=== PATIENT | male | born 1945 | race African-American/Black ===

== ENCOUNTER 2022-09-06 07:27 | Day surgery (SDC) | payer OTHER ==
[~2022-09-06] VITALS: Ht 182.9 cm; Wt 69.4 kg
[~2022-09-06 07:27] MED LIST: CEFAZOLIN SOD 2 GM in D5W 50 ML IV ONE
[2022-09-06] MEDS ORDERED: MORPHINE SULFATE 10MG/10ML PF AMP ONE (09:48)
[2022-09-06] MEDS ORDERED: DESFLURANE 15 MIN GAS INH ONE (09:48)
[2022-09-06] MEDS ORDERED: MORPHINE SULFATE 10 MG/ML VIAL ONE (09:48)
[2022-09-06] MEDS ORDERED: LABETALOL 200 MG/ 40ML VIAL ONE (09:48)
[2022-09-06] MEDS ORDERED: NS 1000 ML IV.SOLN IV ONE (09:48)
[2022-09-06] MEDS ORDERED: SUCCINYLCHOLINE CHLORIDE 20 MG/ML(QUELICIN) ONE (09:48)
[2022-09-06] MEDS ORDERED: BUPIVACAINE /PF 0.25% 30 ML VIAL INJ ONE (09:48)
[2022-09-06] MEDS ORDERED: ROCURONIUM BROMIDE 10 MG/ML (ZEMURON) ONE (09:48)
[2022-09-06] MEDS ORDERED: PROPOFOL 200MG/ 20ML VIAL (DIPRIVAN) IV ONE (09:48)
[2022-09-06] MEDS ORDERED: DEXAMETHASONE SOD PHOSPHATE 4 MG/ML VIAL ONE (09:48)
[2022-09-06] MEDS ORDERED: SUGAMMADEX SODIUM 200 MG/2 ML VIAL IV ONE (09:48)
[2022-09-06] MEDS ORDERED: fentaNYL CITRATE/PF 100 MCG/2 ML AMP ONE (09:48)
[2022-09-06] MEDS ORDERED: LR 1,000 ML IV.SOLN IV ONE (09:48)
[2022-09-06] MEDS ORDERED: ONDANSETRON HCL 4 MG/2 ML VIAL ONE (09:48)
[2022-09-06] MEDS ORDERED: ACETAMINOPHEN I.V. 1000 MG 100 ML IV ONE (10:03)
[2022-09-06] MEDS ORDERED: MORPHINE 4 MG INJ. 4 MG/ML VIAL IVP PRN ×3 (10:15)
[2022-09-06] MEDS ORDERED: ONDANSETRON HCL 4 MG/2 ML VIAL IVP PRN (10:15)
[2022-09-06] MEDS ORDERED: D5/0.45 NS 1,000 ML IV SCH (11:00)
[2022-09-06] MEDS ORDERED: HYDROcodone/ACETAMIN 5-325 MG TAB (NORCO/ VICODIN) PO PRN ×2 (11:00)
[2022-09-06] MEDS: MORPHINE 2 MG/ML INJ. SYRINGE ONE ×2 (11:40→11:55)
[2022-09-06] MEDS ORDERED: hydrALAZINE HCL 20 MG/ML VIAL ONE (13:09)
[2022-09-06] MEDS ORDERED: hydrALAZINE HCL 20 MG/ML VIAL IVP ONE ×2 (13:15)
[2022-09-06 15:18] VITALS: BP_SYST 161
== END 2022-09-06 14:23 | disposition home or self-care (01) ==
LOC: SDS 07:27 → SMU 07:27 → SDS 14:23
PROVIDERS: ATTEND Colon & Rectal Surgery
DX: K80.10 Calculus of gallbladder with chronic cholecystitis without obstruction (principal); I12.9 Hypertensive chronic kidney disease with stage 1 through stage 4 chronic kidney disease, or unspecified chronic kidney disease; N18.9 Chronic kidney disease, unspecified; F03.90 Unspecified dementia, unspecified severity, without behavioral disturbance, psychotic disturbance, mood disturbance, and anxiety; Z85.46 Personal history of malignant neoplasm of prostate; Z96.641 Presence of right artificial hip joint; Z79.899 Other long term (current) drug therapy
CPT/HCPCS: 87081; 47563; 74300; 88304; J3490 ×3; J0690; J1100; J0360; J2405; J2704; J0330; J3010; J2274; J2270 ×2; Q9967; J7060; J7120; J7030; C1758; C1727; J0131; 76000

== ENCOUNTER 2022-10-01 16:04 | Emergency (ER) | payer OTHER ==
[~2022-10-01] VITALS: Ht 182.9 cm; Wt 64.4 kg
[2022-10-01 16:24] VITALS: BP_SYST 126; PULSE 87; RESP 18; TEMP 98.3; O2SAT 100
[2022-10-01] MEDS ORDERED: KETOROLAC TROMETHAMINE 30 MG VIAL IM ONE (17:00)
[2022-10-01] MEDS ORDERED: traMADol HCL HCL 50 MG TABLET (ULTRAM) PO ONE (17:00)
[2022-10-01 17:06] LABS: BILIRUBIN,URINE NEGATIVE (NEGATIVE); BLOOD, URINE NEGATIVE (NEGATIVE); CLARITY/URINE CLEAR (CLEAR); COLOR,URINE YELLOW (YELLOW); GLUCOSE,URINE NEGATIVE (NEGATIVE); KETONES,URINE TRACE (NEGATIVE); LEUKOCYTE ESTERASE ,URINE NEGATIVE (NEGATIVE); NITRITE, URINE NEGATIVE (NEGATIVE); PROTEIN URINE 1+ (NEGATIVE); UROBILINOGEN,URINE 0.2 (0.2-1.0)
[2022-10-01 17:11] LABS: BACTERIA,URINE None Seen /HPF (None Seen); MUCUS,URINE None Seen /LPF (None Seen); RBC,URINE NONE SEEN /HPF (0-3); WBC,URINE 0-3 /HPF (0-3)
[2022-10-01 17:59] LABS: BASOPHILS % (AUTO) 0.5 % (0.0-2.0); EOSINOPHILS % (AUTO) 0.4 % (0.0-4.0); HEMATOCRIT 26.6 % (36-54); LYMPHOCYTES % (AUTO) 11.6 % (20.5-51.5); MEAN CORPUSCULAR HEMOGLOBIN 28 pg (27-31); MEAN CORPUSCULAR HGB CONC 34 % (32-36); MEAN CORPUSCULAR VOLUME 83 fL (79.0-98.0); MONOCYTES # (AUTO) 0.7 K/uL (0.0-1.0); MONOCYTES % (AUTO) 8.7 % (1.7-9.3); NEUTROPHILS # (AUTO) 6.5 K/uL (1.8-7.7); NEUTROPHILS % (AUTO) 78.8 % (40.0-70.0); PLATELET COUNT (AUTO) 400 K/uL (130-430); RED CELL DISTRIBUTION WIDTH 14.4 % (9.0-15.0); WHITE BLOOD COUNT (AUTO) 8.3 K/uL (4.8-10.8)
[2022-10-01 18:05] LABS: ANION GAP 12 (5-15); CALCIUM 9.1 mg/dL (8.4-11.0); CHLORIDE 99 mmol/L (98-107); CREATININE 1.16 mg/dL (0.55-1.30); GLUCOSE 99 mg/dL (74-106); UREA NITROGEN, BLOOD 10 mg/dL (8-21)
[2022-10-01 18:10] LABS: ALANINE AMINOTRANSFERASE 15 U/L (12-78); ALBUMIN 3.3 g/dL (3.4-4.8); ASPARTATE AMINOTRANSFERASE 12 U/L (10-37); LIPASE 545 U/L (73-393); TOTAL BILIRUBIN 0.3 mg/dL (0.0-1.0)
[2022-10-01] MEDS ORDERED: ONDA-8 TL (18:25)
[2022-10-01] MEDS ORDERED: TRAM50TA2 PO (18:25)
[2022-10-01] MEDS ORDERED: SODIUM CHLORIDE 500 MG TABLET PO ONE (18:30)
[2022-10-01] MEDS ORDERED: SODIUM CHLORIDE 500 MG TABLET ONE (18:41)
[2022-10-01 18:45] VITALS: BP_SYST 130; PULSE 85; RESP 19; TEMP 98.4; O2SAT 99
== END 2022-10-01 18:45 | disposition home or self-care (01) ==
LOC: SED 16:04
DX: G89.18 Other acute postprocedural pain (principal); R10.9 Unspecified abdominal pain; R10.33 Periumbilical pain; Z79.899 Other long term (current) drug therapy
CPT/HCPCS: 99285; 74176; 80053; 81000; 83690; 85025; 36415; 76376; 96372; J1885